=== PATIENT | male | born 1995 | race Caucasian/White ===

== ENCOUNTER 2018-04-29 10:44 | Day surgery (SDC) | payer BC ==
[~2018-04-29 10:44] MED LIST: CEFAZOLIN 2 GM/50 ML (PMX) 50 ML IVPB; SOD CHLORIDE 0.9% 1,000 ML IV
[2018-04-29] MEDS ORDERED: PROPOFOL 40 ML (12:14)
[2018-04-29] MEDS ORDERED: MIDAZOLAM 1 MG/ML 2 ML INJ (12:14)
[2018-04-29] MEDS ORDERED: ONDANSETRON 4 MG INJ (12:15)
[2018-04-29] MEDS ORDERED: FAMOTIDINE 20 MG INJ (12:15)
[2018-04-29] MEDS ORDERED: LIDOCAINE 2% (SDV) 5 ML INJ (12:15)
[2018-04-29] MEDS ORDERED: FENTAnyl 50 MCG/ML VIAL ×2 (12:15→13:25)
[2018-04-29] MEDS ORDERED: DEXAMETHASONE 4 MG/ML 1 ML INJ (12:15)
[2018-04-29] MEDS ORDERED: ONDANSETRON 4 MG INJ IV ×2 (12:30→15:00)
[2018-04-29] MEDS ORDERED: OXYCODONE/ACETAMINOPHEN (5/325) TAB PO ×2 (12:30)
[2018-04-29] MEDS ORDERED: ALBUTEROL 0.083% (NEB) 2.5 MG/3 ML AMP HHN (12:30)
[2018-04-29] MEDS ORDERED: morphine (1 MG/ML) 10ML SYRINGE IV ×2 (12:30)
[2018-04-29] MEDS ORDERED: DIPHENHYDRAMINE 50 MG INJ IV (12:30)
[2018-04-29] MEDS ORDERED: CEFAZOLIN 1 GM INJ (12:30)
[2018-04-29] MEDS ORDERED: MEPERIDINE 25 MG INJ IV (12:30)
[2018-04-29] MEDS ORDERED: HYDROmorphONE 1 MG/5 ML IV SYRINGE IV (12:30)
[2018-04-29] MEDS ORDERED: FENTAnyl 50 MCG/ML VIAL IV ×2 (12:30)
[2018-04-29] MEDS ORDERED: LABETALOL HCL 20MG INJ IV (12:30)
[2018-04-29] MEDS ORDERED: ROCURONIUM 50 MG INJ (12:30)
[2018-04-29] MEDS ORDERED: DESFLURANE 15 MIN (12:30)
[2018-04-29] MEDS ORDERED: ESMOLOL 10 ML (12:33)
[2018-04-29] MEDS: BUPIVACAINE 0.5%/EPI (SDV) 30 ML INJ (12:43)
[2018-04-29] MEDS: POLYMYXIN/BACITRACIN 1L IRRIG (12:43)
[2018-04-29] MEDS ORDERED: GLYCOPYRROLATE 0.4 MG INJ (13:00)
[2018-04-29] MEDS ORDERED: NEOSTIGMINE 3 MG/3 ML SYRINGE (13:00)
[2018-04-29] MEDS ORDERED: PHENYLephrine (100 MCG/ML) 5ML SYG (13:00)
[2018-04-29] MEDS ORDERED: KETOROLAC 30 MG INJ (14:22)
[2018-04-29] MEDS ORDERED: HYDROCODONE/APAP (5/325) TAB PO ×2 (15:00)
[2018-04-29] MEDS ORDERED: IBUPROFEN 600 MG TAB PO (15:00)
[2018-04-29] MEDS: HYDROmorphONE 1 MG/5 ML IV SYRINGE IV (15:12)
== END 2018-04-29 16:30 | disposition home or self-care (01) ==
LOC: SDS 10:44
DX: K40.90 Unilateral inguinal hernia, without obstruction or gangrene, not specified as recurrent (principal)
CPT/HCPCS: 49505; 88302